=== PATIENT | male | born 1945 | race Caucasian/White ===

== ENCOUNTER 2016-09-11 17:46 | Emergency (ER) | payer MEDICARE ==
--- NOTE | 2016-09-11 18:07 | Emergency Room Report ---
History of Present Illness Time Seen by [id number] Presenting Problem in Triage Pt arrived: Presenting Problem: Onset of symptoms date/time:/ or onset unknown for: Treatment Prior to Arrival: [employer] Provided by: Sepsis Risk Assessment: Temp: B/P: MAP: Pulse: Resp: Recent fever? Clinical Suspician of Infection? Mental Status: Sepsis Risk: Have you (or family members/close friends) recently traveled outside the [place]? If Yes, where/when: Have you had exposure to infectious disease within the past month? TB? Other? Specify: Code 500 Patient found in public area, EMS called, state patient in VFib, shocked, intubated, epi x 6, amiodarone, FSBS 101, asystole; contact with this MD via cell phone en route and advised bicarb and continue epi; no response; patient arrives with asystole for the past fifteen to twenty minutes w/o response; pupils fixed and dilated; no gag reflex; no palpable pulse; asystole on monitor; code called at 17:48. Source RN notes reviewed, EMS History Medical History General Angina: No [place]: No Hypertension? No Hyperlipidemia? No CHF? No COPD? No Asthma? No Hernia? No CVA? No Seizures? No Diabetes? No UTI? No Stones? No GB Disease: No Hepatitis? No Cataracts? No Glaucoma? No TB? No Cancer? No Surgical Hx Previous Surgery?N unknown ROS, PMH, MEDS and ALLERGIES due to Code 500/ Family History Family Hx Diabetes No CAD No Hypertension No Hyperlipidemia No Cancer No TB No Social History Alcohol Alcohol: No Review of Systems All Other Systems Reviewed and Negative (limited due to Code 500) Respiratory see HPI Cardiovascular see HPI Physical Exam Vital Signs Vital Signs Date Time Temp Pulse Resp B/P Pulse O2 O2 Flow FiO2 Ox Delivery Rate 09/11 1936 0 0 0/0 0 R 0 spontaneous; no pulse (Elver PRINCE, Ebonie Mendoza) General Appearance code 500 in process Ear, Nose, Throat intubated; lower dentures removed by EMS Respiratory Status Yes: respiratory distress, trachea midline (no effort). Lung Sounds bilateral: lungs clear (bagged/intubated). Cardiovascular no rub, asystole on monitor Peripheral Pulses Pulses normal No (pulseless) Gastrointestinal distended Extremities normal inspection, no purposeful movement Strength 1 Upper Ext (L), 1 Upper Ext (R), 1 Lower Ext (L), 1 Lower Ext (R) Neurologic code 500: no signs of life: no reflexes, no gag, no spontaneous movement, no cardiac activity on monitor, pupils fixed and dilated Glascow Coma Scale Glascow Coma Scale Response Value EYE response: 1 No Response 1 MOTOR response: 1 NO RESPONSE 1 VERBAL response: 1 No Response 1 Total 3 Skin mottled Medical Decision Making LABS/Meds/Orders Pt receiving controlled substance in ED? No Progress ED Progress Notes 1 Date 09/11/16 Time 1804 Comment See hpi for events and code called. ED Progress Notes 2 Date 09/11/16 Time 1829 Comment has come to ED and has been updated on patient status; she states he had a recent cardiology work up several months ago and seemed fine today with no complaints before driving his car in the afternoon. 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 Departure Departure Time of Disposition 174 Disposition Clinical Impression Primary Impression: Cardiac dysrhythmia, unspecified Qualifiers: Arrhythmia type: ventricular fibrillation Qualified Code: I49.01 - Ventricular fibrillation Condition STABLE ED Critical Care Critical Care Yes Time spent < 30 min Vital system(s) involved: Circulatory Failure I was present at bedside for Coordinating pt's care, Discussing pt condition (directives via telephone EMS) at 2008
[2016-09-11 19:37] VITALS: BP 0/0
--- OUTSIDE RECORDS SUMMARY | 2016-09-13 21:56 | External Medical Summary Rpt ---
Author Author [employer] Organization [employer] Address Unknown Phone Unavailable Purpose Continuity of Care Document - through 2016
--- OUTSIDE RECORDS SUMMARY | 2016-09-13 21:56 | External Medical Summary Rpt ---
Demographics Preferred Language Divehi Marital Status Unknown Latter-Day Affiliation Unknown Race Unknown Ethnic Group Unknown Author Author , SHANNON ORTEGA Address Unknown Phone Immunization Unable to retrieve immunization data due to connection failure with Immunization Registry. Please try again later.
--- OUTSIDE RECORDS SUMMARY | 2016-09-13 21:56 | External Medical Summary Rpt ---
Author Author , SHANNON ORTEGA Address Unknown Phone [email or web address] Purpose Continuity of Care Document - through 2016 Problems Code Diagnosis DOS Provider Status B96.81 Helicobacte r pylori (H. 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
--- OUTSIDE RECORDS SUMMARY | 2016-09-13 21:56 | External Medical Summary Rpt ---
Author Author SHANNON Valentin, [employer] Address Unknown Phone Unavailable
--- OUTSIDE RECORDS SUMMARY | 2016-09-13 21:56 | External Medical Summary Rpt ---
Demographics Preferred Language Chinese Marital Status Unknown Quaker Affiliation Unknown Race Unknown Ethnic Group Unknown Author Author , SHANNON ORTEGA Address Unknown Phone Immunization Unable to retrieve immunization data due to connection failure with Immunization Registry. Please try again later.
--- OUTSIDE RECORDS SUMMARY | 2016-09-13 21:56 | External Medical Summary Rpt ---
Author Author , SHANNON ORTEGA Address Unknown Phone [email or web address] Purpose Continuity of Care Document - through [...]
== END 2016-09-11 19:38 | disposition expired ==
LOC: ER 17:46
DX: I46.9 Cardiac arrest, cause unspecified (principal); I49.01 Ventricular fibrillation